=== PATIENT | female | born 1980 | race Caucasian/White ===

== ENCOUNTER → 2022-02-18 | Outpatient (CLI) | payer SELFPAY ==
[2022-02-18 12:24] LABS: Absolute Lymphocyte Count 0.64 X10^3/uL (0.83-4.51); Absolute Neutrophil Count 5.4 X10^3/uL (2.0-7.7); Basophil# 0.01 X10^3/uL; Basophil% 0.2 % (0-1); Eosinophil# 0.01 X10^3/uL; Eosinophils% 0.2 % (0-5); Hematocrit 34.3 % (37-47); Hemoglobin 10.8 g/dL (12.0-15.0); Lymphocyte # 0.64 X10^3/ul (0.83-4.51); Mean Corp Hgb Conc 31.5 g/dL (32-36); Mean Corpuscular Hgb 28.1 pg (27.0-32.0); Mean Corpuscular Volume 89.1 fL (81-99); Mean Platelet Vol. 9.3 fl (6.2-12.0); Monocyte# 0.33 X10^3/uL; Monocyte% 5.1 % (0-10); NRBC Flagged by Analyzer 0 % (0-5); Neutrophil # 5.41 X10^3/uL (2.7-7.7); Platelet Count 208 K/mm3 (150-450); RBC Distribution Width CV 14.5 % (11.6-14.6); RBC Distribution Width SD 46.4 fl (35.1-43.9); Red Blood Count 3.85 M/mm3 (4.2-5.4); White Blood Count 6.4 K/mm3 (4.4-11.0)
[2022-02-18 13:05] LABS: HIV - WCH Non-Reactive (Nonreactive); Hepatitis B Surface Antigen Non-Reactive (Nonreactive); Hepatitis C Antibody Non-Reactive (Nonreactive); Rubella IgG Reactive (Nonreactive); Syphilis Antibodies Non-reactive
[2022-02-19 17:13] LABS: V-Zoster IgG (Immunity) 979 index (Immune >165)
[2022-02-20 11:09] LABS: Chlamydia By Nucleic Acid AMP Negative (Negative)
[2022-02-20 14:54] LABS: Gonococcus By Nucleic Acid AMP Negative (Negative)
[2022-02-24 14:30] LABS: HPV APTIMA, High Risk Negative
== END | disposition home or self-care (01) ==
PROVIDERS: Visit Provider Obstetrics & Gynecology
DX: Z34.83 Encounter for supervision of other normal pregnancy, third trimester (principal); Z12.4 Encounter for screening for malignant neoplasm of cervix; Z11.3 Encounter for screening for infections with a predominantly sexual mode of transmission
CPT/HCPCS: 36415; 85025; 86703; 86762; 86780; 86787; 86803; 87086; 87088; 87340; 87491; 87591; 87624; 88175; G0145

== ENCOUNTER 2022-03-12 18:05 | Inpatient (IN) | payer SELFPAY, OTHER ==
[2022-03-12] VITALS (9 sets, daily range): BP systolic 104–130; BP diastolic 50–79; PULSE 69–86; RESP 11–20; TEMP 36.2–36.6; O2SAT 97–98; BMI 31.4
--- NOTE | 2022-03-12 | FALS_PTH ---
PATIENT: VINH SAUCEDO LOC: [facility] U#:[id number] AGE/SX: 41/F ROOM: WP004 RE03/12/[address]: Dr. Eddie Saucedo MD : 1980 BED: 1 DIS: 03/14/2022 SPEC #: [id number] RECD: 03/13/22 10:08 STATUS: OLGA LEIA #: [id number] HENRIK: 03/12/22 00:[address]: Eddie Saucedo DEPT: SURGICAL PATHOLOGY RECD BY: Willian Reveles Tissues: Fallopian tube Procedures: Surgery Specimen Level II HEADER OPERATION: Tubal ligation PRE-OP DIAGNOSIS: Tubal ligation TISSUE SUBMITTED: Fallopian tubes, suture in right tube MICROSCOPIC DIAGNOSIS Right fallopian tube, salpingectomy: Complete segment of fallopian tube with no pathologic change. Left fallopian tube, salpingectomy: Complete segment of fallopian tube with no pathologic change. AM:marissa 03/16/2022 MICROSCOPIC DESCRIPTION Slides are reviewed. GROSS DESCRIPTION Received in fixative is one container labeled with the patient's name and designated bilateral fallopian tubes, suture in right tube. The specimen consists of bilateral fallopian tubes including fimbrial ends. The right fallopian tube measures 6.5 cm in length and 0.8 cm in diameter and the left fallopian tube measures 6 cm in length and 0.6 cm in diameter. Sections reveal unremarkable cut surfaces. [employer] Manager sections are submitted in two cassettes as follows: 1 - right fallopian tube, 2 - left fallopian tube. / MENDOZA:marissa 03/13/2022 TC:4 CPT: 30915 x2
[2022-03-12] MEDS: Lactated Ringers 1,000 ML 999 ML IV (18:35)
[2022-03-12 18:48] LABS: Absolute Lymphocyte Count 0.85 X10^3/uL (0.83-4.51); Absolute Neutrophil Count 6.8 X10^3/uL (2.0-7.7); Basophil# 0.01 X10^3/uL; Basophil% 0.1 % (0-1); Eosinophil# 0.01 X10^3/uL; Eosinophils% 0.1 % (0-5); Hematocrit 35.8 % (37-47); Hemoglobin 11.3 g/dL (12.0-15.0); Lymphocyte # 0.85 X10^3/ul (0.83-4.51); Lymphocyte % 10.4 % (19-41); Mean Corp Hgb Conc 31.6 g/dL (32-36); Mean Corpuscular Volume 88.8 fL (81-99); Mean Platelet Vol. 9.1 fl (6.2-12.0); Monocyte# 0.43 X10^3/uL; Monocyte% 5.3 % (0-10); NRBC Flagged by Analyzer 0 % (0-5); Neutrophil # 6.84 X10^3/uL (2.7-7.7); Neutrophil % 83.5 % (47-70); Platelet Count 221 K/mm3 (150-450); RBC Distribution Width CV 14.7 % (11.6-14.6); RBC Distribution Width SD 47.7 fl (35.1-43.9); Red Blood Count 4.03 M/mm3 (4.2-5.4); White Blood Count 8.2 K/mm3 (4.4-11.0)
[2022-03-12] MEDS: Acetaminophen 500 MG Tablet 1000 MG PO (19:01)
[2022-03-12 19:02] LABS: ALB/GLOB Ratio 0.6 RATIO (0.9-2.4); AST(SGOT) 36 U/L (15-37); Alanine Aminotransfer ALT/SGPT 27 U/L (13-56); Albumin, Serum 2.6 g/dL (3.2-5.0); Alkaline Phosphatase 187 U/L (45-117); Anion Gap 8 (5-15); BUN 9 mg/dL (7-18); BUN/Creat Ratio 20.1 RATIO (10-20); Chloride 106 mmol/L (98-107); Creatinine, Serum 0.45 mg/dL (0.55-1.02); EST Glomerular Filtration Rate 164 mL/min (>60); Est Glom Filt Rate - Afr Amer 198 mL/min (>60); Estimated Creatinine Clearance 142.07 ml/min; Glucose 79 mg/dL (74-106); LDH 258 U/L (84-246); Potassium 3.8 mmol/L (3.5-5.1); Protein, Total 6.6 g/dL (6.4-8.2); Sodium Level 138 mmol/L (136-145)
--- NOTE | 2022-03-12 19:02 | HP.PCM.OB_ITS ---
History and Physical Date of Admission: 03/12/22 Chief complaint: Hypertension History present illness: 41-year-old G 14 P 11 at 37 weeks and 3 days with KADE 03/30/2022 arrives for repeat section at term with gestational hypertension. Denies headache, visual changes, chest pain, shortness of breath, nausea vomit, right upper qu adrant pain. Patient states good movement. is complicated by AMA, late care, grand multipara, history of section, transverse lie, gestational hypertension Obstetric history: G 14 P 11 with a history of 2 SABs and history of section for twins. History of loss of single twin along with loss of yeung after delivery Past medical history: None Medications: None Allergies: No known drug allergies Past surgical history: section Family history: Denies history DVT or PE Social history: Denies smoking, alcohol, drug use Review of systems: Besides above pertinent positives a full review of systems was performed and found to be negative Physical exam: Vitals: Pending General: Normal-appearing no acute distress HEENT: Normocephalic atraumatic no cervical of adenopathy Cardiac/respiratory: No use of accessory muscles, nonlabored breathing Abdomen: Soft, nontender, gravid Extremities: No peripheral edema normal peripheral pulses Psych: Normal affect normal demeanor nonpressured speech Labs: White blood cell count 8.2 hemoglobin 11.3 hematocrit 38.5% platelets 221. Sodium 138 potassium 3.8 creatinine 0.45 AST 36 ALT 27 LDH 258. Assessment plan: 41-year-old G 14 P 11 at 37 weeks and 3 days with gestational hypertension in need of repeat section for history of section and transverse lie. We will continue to monitor blood pressures and treat appropriately. Patient educated on diagnosis of hypertension in along with need for section risk benefits alternatives. Patient states understanding and wished to proceed. All questions were answered and consent was signed. 2 g Ancef. For now
[2022-03-12] MEDS: Lactated Ringers 1,000 ML 150 ML IV (19:36)
[2022-03-12 19:54] LABS: Bacteria 0 SEEN /hpf (None Seen); Mucous, Urine 0 SEEN /hpf (<or=2+); Red Blood Cells-Urine 0 SEEN /hpf (0-5); White Blood Cells 0 SEEN /hpf (0-5)
[2022-03-12 20:17] LABS: Color, Urine Yellow (Yellow); Glucose, Dipstick Normal (Normal); Leukocyte Esterase-Dipstick Negative /ul (Negative); Nitrite-Dipstick Negative (Negative); Occult Blood-Urine Negative /ul (Negative); Protein-Dipstick Negative (Negative); Urine Bilirubin Dipstick Negative (Negative); Urine Clarity Clear (Clear); Urine Urobilinogen Normal (Normal)
[2022-03-12] MEDS: Sodium Citrate/Citric Acid 30 ML UDC PO (20:38)
[2022-03-12 20:41] LABS: Ketone-Dipstick 150 mg/dl (Negative)
--- NOTE | 2022-03-12 20:42 | NURSING ---
Dr. Anselmo Saucedo verbally notified of urinalysis results with ketones 150. Primary RN to continue to monitor.
[2022-03-12 20:43] LABS: Squamous Epithelial Cells - UA 0-5 SEEN /hpf (5-10)
[2022-03-12 20:44] LABS: Protein, Urine (Random) 10.2 mg/dL (<11.9); Protein:Creat Ratio 159 mg/g CRE (0-200)
[2022-03-12] MEDS: Cefazolin 2 GM in 0.9% Normal Saline 100 ML IV (20:51)
--- NOTE | 2022-03-12 21:54 | EX.PCM.OBRPT ---
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 Large amount of vesicouterine adhesions along with fascial uterine adhesions. Otherwise normal uterus, tubes, and ovaries. Consent: Patient with history of section and desires permanent sterilization in need of repeat low-transverse section Via Pfannenstiel incision and bilateral salpingectomy. Patient understands risk of the procedure include but are not limited to visceral vascular injury, prolonged hospitalization, blood loss need for transfusion, reoperation. Patient stated understanding and wished to proceed. All questions were answered and consent was signed. Procedure: Patient was brought back to the OR where spinal anesthesia was found to be adequate. 2 g of Ancef and 500 mg of azithromycin were given for infection prophylaxis. Patient was prepared and draped in a supine position with leftward tilt. A Pfannenstiel incision was made at the skin with a scalpel. The incision was carried down to the fascia with a scalpel. The fascia was excised and extended laterally. Rectus muscle was dissected the midline down to the level of the pubic symphysis. Preperitoneal fatty tissue was noted peritoneum was entered bluntly. Peritoneum was extended superiorly and inferiorly with good visualization of bladder. Bladder blade was inserted and vesicouterine peritoneum was identified. Low transverse hysterotomy was made. Hand was placed in the incision and transverse spine up position was noted. Baby was grasped by the head and internally verted to cephalic presentation. Gentle fundal pressure was applied once the head was brought into the incision and the bladder blade was removed. Head and shoulders were delivered with ease. Cord was cut and clamped. Baby handed off to nursing. Placenta was delivered via cord traction and fundal massage. IV oxytocin was initiated to facilitate uterine contractions. Uterus was exteriorized and wiped out with dry laparotomy sponge in order to remove remaining placental membranes. Uterus was closed in a continuous running fashion. Second layer was performed. [id number] suture was used for hemostasis. Right fallopian tube was identified up to the fimbriae and using a LigaSure device the mesosalpinx was cut and cauterized, fallopian tube sent to pathology. In a similar fashion the left fallopian tube was identified out to the fimbria and the mesosalpinx was cut and cauterized with LigaSure device and the left loping tube was sent to pathology. Good hemostasis was noted bilaterally. Uterus was placed back into the abdominal cavity and the incision was reinspected, good hemostasis was noted. Dominique was placed over the hysterotomy. Good hemostasis was noted. Fascia was closed in a continuous running fashion with PDS suture. Subcutaneous irrigation was performed. Good hemostasis was noted. Skin was closed in a subcuticular fashion. All counts were correct x2. Patient tolerated procedure well and brought to recovery stable condition.
[2022-03-12] MEDS: Oxytocin 15 Units/NS 250ml 15 UNITS/250 ML IV.SOLN 83 UNITS IV (22:10)
[2022-03-12] MEDS: Ketorolac 30 MG/ML Syringe IV (22:59)
[2022-03-13] VITALS (10 sets, daily range): BP systolic 91–121; BP diastolic 47–60; PULSE 65–79; RESP 16–18; TEMP 35.6–36.3; O2SAT 97–99
[2022-03-13 00:54] LABS: Pathology Specimen OB SEE PATHOLOGY REPORT
[2022-03-13] MEDS: Acetaminophen 500 MG Tablet 1000 MG PO ×4 (01:03→19:32)
[2022-03-13] MEDS: Lactated Ringers 1,000 ML 100 ML IV (03:00)
[2022-03-13] MEDS: Ketorolac 30 MG/ML Syringe IV ×3 (04:22→16:55)
[2022-03-13 04:39] LABS: Hematocrit 30.4 % (37-47); Hemoglobin 9.7 g/dL (12.0-15.0); Mean Corp Hgb Conc 31.9 g/dL (32-36); Mean Corpuscular Hgb 28.5 pg (27.0-32.0); Mean Corpuscular Volume 89.4 fL (81-99); Mean Platelet Vol. 9.1 fl (6.2-12.0); Platelet Count 174 K/mm3 (150-450); RBC Distribution Width CV 14.7 % (11.6-14.6); RBC Distribution Width SD 47.7 fl (35.1-43.9); White Blood Count 7.2 K/mm3 (4.4-11.0)
--- NOTE | 2022-03-13 08:32 | PCM.PN.OB ---
Subjective Subjective No overnight complaints. Denies headache, visual changes, chest pain, shortness of breath, nausea vomit, right upper quadrant pain. Objective Data Objective Data Vital Signs: Vital Signs Temp Pulse Resp BP Pulse Ox O2 Del Method 96.1 F L 71 18 104/55 L 98 Room Air 03/13/22 06:30 03/13/22 06:30 03/13/22 06:30 03/13/22 06:30 03/13/22 06:30 03/13/22 06:30 Oxygen Delivery Method Room Air Weight: 183 lb 6.793 oz Body Mass Index (BMI) 31.4 Intake & Output: Intake and Output for Last 24 Hours 03/11/22 03/12/22 03/13/22 23:59 23:59 23:59 Intake Total 1552.5 / 1552.5 1205 / 1205 Output Total 500 / 500 500 / 500 Balance 1052.5 / 1052.5 705 / 705 Lab / Micro Data Result Diagrams: 03/13/22 04:25 03/12/22 18:35 Labs: Laboratory Results - last 24 hr 03/12/22 18:35: WBC 8.2, RBC 4.03 L, Hgb 11.3 L, Hct 35.8 L, MCV 88.8, MCH 28.0, MCHC 31.6 L, RDW Std Deviation 47.7 H, RDW Coeff of Brandon 14.7 H, Plt Count 221, MPV 9.1, Immature Gran % (Auto) 0.600, Neut % (Auto) 83.5 H, Lymph % (Auto) 10.4 L, [place] % (Auto) 5.3, Eos % (Auto) 0.1, Baso % (Auto) 0.1, Absolute Neuts (auto) 6.8, Absolute Lymphs (auto) 0.85, Nucleated RBC % 0 03/12/22 18:35: Blood Type A POSITIVE, Antibody Screen NEGATIVE 03/12/22 18:35: Sodium 138, Potassium 3.8, Chloride 106, Carbon Dioxide 24.0, Anion Gap 8, BUN 9, Creatinine 0.45 L, Estim Creat Clear Calc 142.07, Est GFR (MDRD) Af Amer 198, Est GFR (MDRD) Non-Af 164, BUN/Creatinine Ratio 20.1 H, Glucose 79, Calcium 9.0, Total Bilirubin 0.40, AST 36, ALT 27, Alkaline Phosphatase 187 H, Lactate Dehydrogenase 258 H, Total Protein 6.6, Albumin 2.6 L, Globulin 4.0, Albumin/Globulin Ratio 0.6 L 03/12/22 19:45: Urine Color Yellow, Urine Clarity Clear, Urine pH 7.0, Ur Specific Dresser 1.010, Urine Protein Negative, Urine Glucose (UA) Normal, Urine Ketones 150 A*, Urine Occult Blood Negative, Urine Nitrite Negative, Urine Bilirubin Negative, Urine Urobilinogen Normal, Ur Leukocyte Esterase Negative, Urine RBC 0 SEEN, Urine WBC 0 SEEN, Ur Squamous Epith Cells 0-5 SEEN, Urine Bacteria 0 SEEN, Urine Mucus 0 SEEN 03/12/22 19:45: U Random Total Protein 10.2, Urine Creatinine 64.20, Protein/Creatinin Ratio 159 03/13/22 04:25: WBC 7.2, RBC 3.40 L, Hgb 9.7 L, Hct 30.4 L, MCV 89.4, MCH 28.5, MCHC 31.9 L, RDW Std Deviation 47.7 H, RDW Coeff of Brandon 14.7 H, Plt Count 174, MPV 9.1 Physical Exam Const alert, oriented x3, no apparent distress, average body habitus, healthy appearing and well nourished HEENT normocephalic and moist oral mucous membranes Eyes PERRL Neck full ROM Resp normal respiratory effort, no retractions and no use of accessory muscles GI GI Narrative: Soft, nontender, bandage clean dry and intact Extremity normal to inspection and full ROM Neuro moves all extremities and no focal motor deficits Psych mental status grossly normal, affect normal, speech normal and activity/motor behavior normal Assessment & Plan (1) delivery delivered: PLAN: Postop day 1 status post repeat section bilateral tubal ligation. Pain well controlled. Breast-feeding. Gestational hypertension, will continue to monitor blood pressures. Patient asymptomatic. Likely home tomorrow
[2022-03-13] MEDS: Senna/Docusate Sodium 1 Tablet PO (10:33)
[2022-03-13] MEDS: 0.9% Saline Lock 10 ML Syringe IV ×2 (10:33→16:55)
[2022-03-13] MEDS: Enoxaparin 40 MG/0.4 ML Syringe SC (10:34)
[2022-03-14] MEDS: Acetaminophen 500 MG Tablet 1000 MG PO ×3 (01:11→14:08)
[2022-03-14] MEDS: Ibuprofen 600 MG Tablet PO ×2 (01:25→08:22)
[2022-03-14 01:36] VITALS: BP 120/52; PULSE 68; RESP 16; TEMP 36.2; O2SAT 98
--- NOTE | 2022-03-14 08:11 | PCM.PN.OB ---
Subjective Subjective Pain controlled. Lochia minimal. No overnight events. Objective Data Objective Data Vital Signs: Vital Signs Temp Pulse Resp BP Pulse Ox O2 Del Method 97.2 F L 68 16 120/52 L 98 Room Air 03/14/22 01:36 03/14/22 01:36 03/14/22 01:36 03/14/22 01:36 03/14/22 01:36 03/14/22 01:36 Oxygen Delivery Method Room Air Weight: 83.2 kg Body Mass Index (BMI) 31.4 Intake & Output: Intake and Output for Last 24 Hours 03/12/22 03/13/22 03/14/22 23:59 23:59 23:59 Intake Total 1552.5 / 1552.5 1780 / 1780 Output Total 500 / 500 2250 / 2250 Balance 1052.5 / 1052.5 -470 / -470 Lab / Micro Data Result Diagrams: 03/13/22 04:25 03/12/22 18:35 Physical Exam Const alert, oriented x3 and no apparent distress HEENT normocephalic Head and Scalp: atraumatic Neck full ROM Resp normal respiratory effort Cardio regular rate GI normal to inspection, nondistended, normoactive bowel sounds GI Narrative: Uterus 2 cm below umbilicus, dressing clean and dry Back/Spine normal ROM Extremity normal to inspection Extremity Narrative: Minimal pedal edema Neuro no focal motor deficits and no sensory deficits noted Psych mental status grossly normal and affect normal Assessment & Plan (1) delivery delivered: PLAN: Postop day 2 status post repeat section bilateral salpingectomy. Complicated by gestational hypertension. Blood pressures been well controlled. Reviewed signs and symptoms of preeclampsia with patient. To notify of headache unresolved with Tylenol and ibuprofen, visual disturbances, right upper quadrant pain, chest pain or dyspnea. Discharge home today. 1 week postop visit 6-week . (2) Acute postoperative pain:
--- NOTE | 2022-03-14 08:12 | DCINST_ITS ---
Discharge Instructions Diet Discharge Diet: No restrictions Activity Discharge Activity: Return to Normal Activity and May Shower May resume sexual activity in: 4-6 weeks Weight Bearing Status: Weight bearing as tolerated Lifting Restrictions: No greater than 25 pounds Dressing / Incision Call your doctor if your incision/area has: Continuous Slow Oozing, Increased Redness and Swelling at the incision site Call your doctor if you observe: Fever of 101 or Higher, Change in Color, Inability to urinate, Using more than 1 pad per hour, Shortness of breath, Dizziness, Swelling in the ankles, Chest pain and Calf discomfort Remove Dressing in: 1 week Cleanse incision/area with: Soap & Water and Keep Dressing Clean & Dry Follow Up Care Please Follow Up With: Eddie Saucedo MD When: 1 week post op and 6-week visit Test Results: Test results from this visit will be discussed in further detail at your follow- up appointment, if applicable. Discharge Plan Admission Admit Date/Time: 03/12/22 18:05 Primary Reason for Your Visit: section Attending Provider: Eddie Saucedo Instructions Additional Instructions / Restrictions: Regular diet. Okay to shower. No tub baths for 2 weeks. No intercourse for 4 to 6 weeks. No lifting over 25 pounds for 2 to 3 weeks. Call if fevers, chills, chest pain, shortness of breath. Follow-up 1 week blood pressure check Discharge Orders/Prescriptions Prescriptions: New oxycodone 5 mg tablet 5 mg PO Q6H PRN (Reason: pain (scale score 7-10)) 4 Days Qty: 16 0RF Continued [id number] 1 mg Tablet 1 tab PO DAILY Disposition Disposition (needs filled in before D/C Order can be placed): Home, Self Care
[2022-03-14 08:25] VITALS: BP 115/70; PULSE 66; RESP 16; TEMP 36.4; O2SAT 96
--- NOTE | 2022-03-14 11:39 | CASEMGMT ---
Social Work Assessment Labor and Delivery Date/Time of Referral:03/13/22, 11:55am Referred by: Dr. Eddie Saucedo Date/Time of Intervention: 03/14/22, 9am Reason for Referral: 40 week loss, resources History obtained from: SINA Household composition: ANJANA ANDINO, 12 children ages 18- Parent/guardian status: MOB and FOB are guardians of all children, including the Elmina Medical History: MOB: gestational hypertension, . Baby: Born [birth year], 2113, 3.245 kg. Apgars 8 and 9 at one and five minutes Financial Status: SINA states they are managing. She states sometimes money is tight but they always manage. 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 She states this is a busy time of year. Infant Supplies: They have all needed supplies including car seat, crib, clothing, diapers, bottles, wipes. MOB does plan to breast feed and supplement w/formula if needed. Childcare/Caregivers: The older children, MOB's parents. Transportation: They have access to transportation, have a drivers license examiner. Programs/Agencies involved: None at present. They did have hospice and a SW for their 22 month old who has a heart condition. She is doing better however and so hospice was discontinued. Children's Services/Legal issues: None Behavioral Health issues: Substance abuse: none for MOB or FOB. No tox screens completed on [facility]INA on this admission. Mental Health: No history of mental health issues for FOB. SINA states does think had some after the of her 5th child. She started taking something natural and has stayed on it, she states it does help. She states she has been on this for 12 years. We talked about the possibility of again, she is aware of it. She would be willing to speak w/her doctor about going on a mood enhancer for a short time should it be needed. She states she would rather do that than to feel down. She states has never been in counseling, has never needed it. She states her is very supportive and cares about how she is feeling. Family/Social Stressors: SINA clarified that she did not have a 40 week loss. She states she had a miscarriage in 2011. Then she has a daughter named Belen who has a heart condition. She states when her heart gives out, it gives out. They do not know when this will happen. She states that Belen was up in [place] for 6 weeks last winter and she is hoping this winter will be better. SW offered support to MOB around the difficulty of having a child with a medical condition and uncertain prognosis. Support systems: MOB states their parents and their mandaeism group are supportive. depression/anxiety/shaken baby/safe sleeping/Help Me Grow: SW gave MOB information on all of these topics and reviewed it with her, in particular the warning signs for . SW encouraged MOB to also have her review the warning signs so he is aware. MOB states understanding. Plan: Plan will be for baby to go home with family when ready. No further social service needs anticipated at this time. OLAYINKA Lynch
[2022-03-14] MEDS: Enoxaparin 40 MG/0.4 ML Syringe SC (11:51)
[2022-03-14 11:57] VITALS: BP 129/86; PULSE 73; RESP 16; TEMP 36.6; O2SAT 99
== END 2022-03-14 14:15 | disposition home or self-care (01) | DRG 785 ==
PROVIDERS: Admitting Provider Obstetrics & Gynecology; Visit Provider Obstetrics & Gynecology
DX: O13.4 Gestational [pregnancy-induced] hypertension without significant proteinuria, complicating childbirth (principal); O26.23 Pregnancy care for patient with recurrent pregnancy loss, third trimester; O34.211 Maternal care for low transverse scar from previous cesarean delivery; Z3A.37 37 weeks gestation of pregnancy; Z37.0 Single live birth
CPT/HCPCS: 59025; 59050; 80053; 81001; 82570; 83615; 84156; 85025; 85027; 86850; 86900; 86901; 88302; 99218; 99251; J7120; A4216; G0378; G0463

== ENCOUNTER → 2022-03-12 | Outpatient (CLI) | payer SELFPAY | END | disposition home or self-care (01) | PROVIDERS: Referring Provider Obstetrics & Gynecology; Visit Provider Obstetrics & Gynecology | DX: Z36.85 Encounter for antenatal screening for Streptococcus B (principal) | CPT/HCPCS: 87081 ==